=== PATIENT | male | born 1980 | race Caucasian/White ===

== ENCOUNTER 2016-06-18 16:32 | Emergency (ER) | payer BC, OTHER ==
--- NOTE | 2016-06-18 16:46 | ER Document Report ---
ED Medical Screen (RME) - General Stated Complaint: BACK PAIN Time seen by provider: 16:46 Mode of Arrival: Ambulatory Information source: Patient Notes: 36-year-old male presents to ED for low back pain that shoots up to the top of his back. States he was moving heavy equipment around at work 2 weeks ago when the pain started. Denies loss control of bowel or bladder. Denies saddle anesthesia. Is able to walk. States he had Linda Santos 2003 no other back history. I have greeted and performed a rapid initial assessment of this patient. A comprehensive ED assessment and evaluation of the patient, analysis of test results and completion of medical decision making process will be conducted by an additional ED providers. TRAVEL OUTSIDE OF THE [place] IN LAST 30 DAYS: No - Related Data Allergies/Adverse Reactions: No Known Allergies Allergy (Verified 06/18/16 16:46) Past Medical History Neurological Medical History: Reports: Hx Seizures - w/ G.B. - Immunizations Immunizations up to date: Yes Hx Diphtheria, Pertussis, Tetanus Vaccination: Yes Physical Exam - Vital signs Vitals: Temp Pulse Resp BP Pulse Ox 98.2 F 105 H 20 131/87 H 97 06/18/16 16:42 06/18/16 16:42 06/18/16 16:42 06/18/16 16:42 06/18/16 16:42 Course - Vital Signs Vital signs: Temp Pulse Resp BP Pulse Ox 98.2 F 105 H 20 131/87 H 97 06/18/16 16:42 06/18/16 16:42 06/18/16 16:42 06/18/16 16:42 06/18/16 16:42
--- NOTE | 2016-06-18 19:56 | ER Document Report ---
ED General - General Mode of Arrival: Ambulatory Information source: Patient TRAVEL OUTSIDE OF THE [place] IN LAST 30 DAYS: No - HPI Patient complains to provider of: Back Pain Onset: Other - 2.5 weeks ago Associated symptoms: Other - See above - General Chief Complaint: Low Back Pain Stated Complaint: BACK PAIN Notes: 36 year old male presents to the ED complaining of back pain for the past 2.5 weeks after lifting heavy equipment while at work. Patient reports that he went to bend down and felt "something pop." Patient has an appointment with his primary care provider at [facility] 06/24/2016. Patient went to an Urgent Care in [place] while visiting family and was given Ibuprofen for the pain. (MASON STEWART) - Related Data Allergies/Adverse Reactions: No Known Allergies Allergy (Verified 06/18/16 16:46) Past Medical History - General Information source: Patient - Social History Smoking Status: Former Smoker Chew tobacco use (# tins/day): Yes Frequency of alcohol use: 1-2 beers daily Drug Abuse: None Family History: None Patient has suicidal ideation: No Patient has homicidal ideation: No Neurological Medical History: Reports: Hx Seizures - w/ G.B. Renal/ Medical History: Denies: Hx Peritoneal Dialysis Surgical Hx: Negative - Immunizations Immunizations up to date: Yes Hx Diphtheria, Pertussis, Tetanus Vaccination: Yes Review of Systems - Review of Systems Constitutional: No symptoms reported EENT: No symptoms reported Cardiovascular: No symptoms reported Respiratory: No symptoms reported Gastrointestinal: No symptoms reported Genitourinary: No symptoms reported Male Genitourinary: No symptoms reported Musculoskeletal: See HPI, Back pain Skin: No symptoms reported Hematologic/Lymphatic: No symptoms reported Neurological/Psychological: No symptoms reported -: Yes All other systems reviewed and negative Physical Exam - General General appearance: Alert In distress: None - HEENT Head: Normocephalic, Atraumatic Eyes: Normal Extraocular movements intact: Yes Pupils: PERRL - Respiratory Respiratory status: No respiratory distress Breath sounds: Normal - Cardiovascular Rhythm: Regular Heart sounds: Normal auscultation - Abdominal Inspection: Normal Distension: No distension Tenderness: Nontender - Back Back: Tender - Parathoracic and paralumbar tenderness to palpation. No redness or swelling.. No: Normal - Extremities General upper extremity: Normal inspection, Normal ROM General lower extremity: Normal inspection, Normal ROM - Neurological Neuro grossly intact: Yes Cognition: Normal Orientation: AAOx4 [place] Coma Scale Eye Opening: Spontaneous [place] Coma Scale Verbal: Oriented [place] Coma Scale Motor: Obeys Commands [place] Coma Scale Total: 15 Speech: Normal - Psychological Associated symptoms: Normal affect, Normal mood - Skin Skin Temperature: Warm Skin Moisture: Dry Skin Color: Normal Discharge - Discharge Clinical Impression: Back pain Condition: Stable Disposition: HOME, SELF-CARE Instructions: Low Back Pain ([facility]) Additional Instructions: Low Back Pain Three out of every four people will have an episode of disabling back pain during their lifetime. Most commonly the pain is due to straining of the muscles and ligaments in the low back. Usual treatment includes: (1) Rest on a firm surface. Avoid lying on your stomach. (2) Ice pack the painful area. After a few days, gentle heat may be used intermittently to relax the area, or ice packs can be continued. (3) Medication may be needed -- muscle relaxers and antiinflammatory medicines are commonly used. (4) As the back improves, exercises are prescribed to strengthen the back and abdominal muscles. Your doctor will advise you on the proper care for your back at each stage in your recovery. You may be better in a few days -- or healing may take several weeks. If new symptoms of a "herniated disc" (radiation of pain, numbness, or tingling down the back of the leg or weakness in the leg) occur, you should be re-examined. Further testing may be necessary. Follow-up with your primary physician as scheduled next week return for increasing worsening or new symptoms Prescriptions: Methocarbamol [Robaxin 500 mg Tablet] 500 mg PO BID #15 tablet Naproxen [Naprosyn 375 Mg Tablet] 375 mg PO DAILY #12 tablet Scribe Documentation - Scribe Written by Arlene:: Arlene Moreno, 06/18/2016 [id number] acting as scribe for :: Obdulio
[2016-06-18 20:23] VITALS: BP 134/79
== END 2016-06-18 20:19 | disposition home or self-care (01) ==
LOC: ER 16:32
DX: M54.5 Low back pain (principal); X50.0XXA Overexertion from strenuous movement or load, initial encounter; Y99.0 Civilian activity done for income or pay; Z87.891 Personal history of nicotine dependence; Z72.0 Tobacco use
CPT/HCPCS: 72110; 99283

== ENCOUNTER 2018-06-22 05:49 | Day surgery (SDC) | payer BC ==
[2018-06-03 11:54] LABS: HEMATOCRIT 46.3 % (37.9-51.0); HEMOGLOBIN 16.3 g/dL (13.5-17.0); MEAN CORPUSCULAR HEMOGLOBIN 30.9 pg (27.0-33.4); MEAN CORPUSCULAR HGB CONC 35.3 g/dL (32.0-36.0); MEAN CORPUSCULAR VOLUME 88 fl (80-97); PLATELET COUNT 255 10^3/uL (150-450); RED BLOOD COUNT 5.29 10^6/uL (4.35-5.55); RED CELL DISTRIBUTION WIDTH 12.6 % (11.5-14.0); WHITE BLOOD COUNT 5.3 10^3/uL (4.0-10.5)
[2018-06-03 11:59] LABS: INTERNATIONAL RATION (INR) 0.91; PARTIAL THROMBOPLASTIN TIME 29.9 SEC (23.5-35.8); PROTHROMBIN TIME 12.7 SEC (11.4-15.4)
--- NOTE | 2018-06-03 22:04 | EKG REPORT ---
SEVERITY:- NORMAL ECG - SINUS RHYTHM : Confirmed by: Viktor Campos 03-Jun-2018 22:04:03
[~2018-06-22 05:49] MED LIST: CEFAZOLIN 1 GM/D5W RTU 1 GM/50 ML RTUPB IV ONE; CEFAZOLIN 1 GM/D5W RTU 1 GM/50 ML RTUPB IV PRN; CEFAZOLIN 2 GM/D5W RTU 0 GM/0 ML RTUPB IV ONE
[2018-06-22] MEDS ORDERED: POVIDONE-IODINE 5% OPH PREP SOLN 30 ML ONE (06:33)
[2018-06-22] MEDS ORDERED: SODIUM BICARBONATE 4.2% INJ (2.5 MEQ/5 ML) VIAL ONE (06:33)
[2018-06-22] MEDS ORDERED: LIDOCAINE 1%/EPINEPHRINE INJ 20 ML VIAL ONE (06:33)
[2018-06-22] MEDS ORDERED: FENTANYL CITRATE INJ/PF 100 MCG/2 ML AMPUL ONE (06:44)
[2018-06-22] MEDS ORDERED: ONDANSETRON HCL INJ/PF 4 MG/2 ML SDV ONE (06:44)
[2018-06-22] MEDS ORDERED: PROPOFOL INJ 200 MG/20 ML VIAL IV ONE (06:44)
[2018-06-22] MEDS ORDERED: DEXMEDETOMIDINE INJ 80 MCG/20 ML VIAL IV ONE (06:44)
[2018-06-22] MEDS ORDERED: MIDAZOLAM 2 MG/2 ML INJ ONE (06:44)
[2018-06-22] MEDS ORDERED: DIPHENHYDRAMINE HCL 50 MG/ML VIAL IV PRN (08:47)
[2018-06-22] MEDS ORDERED: MEPERIDINE HCL/PF INJ 25 MG/1 ML DISP.SYRIN IV PRN (08:47)
[2018-06-22] MEDS ORDERED: FENTANYL CITRATE INJ/PF 100 MCG/2 ML AMPUL IV PRN ×3 (08:47)
[2018-06-22] MEDS ORDERED: PROMETHAZINE HCL INJ 25 MG/1 ML VIAL IV PRN (08:47)
[2018-06-22] MEDS: FENTANYL CITRATE INJ/PF 100 MCG/2 ML AMPUL ONE ×2 (10:11→10:15)
--- NOTE | 2018-06-22 10:18 | Operative Report ---
Operative Report DATE OF SURGERY: 06/22/18 PREOPERATIVE DIAGNOSIS: Mass of the left forehead suspected aneurysm or pseudoa neurysm. 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 Patient was laid on the table in a supine position. The patient was then prepped with a Betadine scrub and a Betadine solution. The patient was then draped in a sterile and aseptic fashion. A timeout was performed after marking the areas to be resected. The area was anesthetized with 1% lidocaine with epinephrine and bicarb. We then went ahead and incised the outline that was made to facilitate exposure of the proximal and distal ends of the superficial temporal artery. He incision was carried down into the subcutaneous tissue. We then raised flaps both medial and laterally. This facilitated exposure of the whole area. Dissection continued submuscular underneath the frontalis muscle. The mass was located. The mass was then dissected 360 so it could be removed in toto. This appeared that this was a ballooning of the superficial temporal artery, possibly an aneurysm or pseudoaneurysm. Dissection was performed of the feeding vessels into the mass both medial and lateral. We dissected the superficial temporal artery and it appeared at in arch of the artery there was a connection to this bulging mass. We dissected the superficial temporal artery both proximal and distal to the feeding area into the mass. Using 3-0 Vicryl we tied off the feeding vessel. We then went ahead and dissected the lateral side. Again there appeared to be some sort of connection with another branch of the superficial temporal artery. This was then dissected both proximally distally. We then went ahead and tied off the artery both proximal and distally with 3-0 Vicryl. We tied off the connection from the artery to the mass on both sides. Our dissection was down below the muscle. Once we had control from both medial and lateral and superior and inferior we then went ahead and resected the mass. Again it was possibly an aneurysm or a pseudo-. There was no signs of active bleeding after the resection. We then went ahead and double tied each of the arteries that were initially tied off so that we would have good hemostasis and prevent any possible disruption of the closure. We then obtained hemostasis with the bipolar. The wound was irrigated with a Betadine sterile water solution. Again hemostasis was confirmed. The closure was then performed closing the subcutaneous tissue with 5-0 Vicryl. And closed with 4-0 PDS Tincture benzoin and Steri-Strips were applied A light dressing was then applied. Patient was reversed from anesthesia and taken to the [facility] for recovery. This dictation was performed using [employer] naturally speaking. If there are any inconsistencies please contact the surgeon. Subjective: No complaints Objective: Vital signs stable afebrile No bleeding Dressing intact Assessment and plan: Doing well. Elevate the operative site. Resume medications. Take antibiotics for 1 day Follow-up Full instructions were given to the patient and family and they understand Portions of this note may be dictated using [employer] voice recognition software. Occasional variations and spelling and vocabulary could be possible and are unintentional. Additionally, there is a chance that some errors may not be caught or corrected. Please notify the offer of any discrepancies noted or if any statements are unclear.
--- NOTE | 2018-06-22 10:20 | Discharge Summary ---
Discharge Summary (SDC) - Discharge Final Diagnosis: Mass of the left forehead Date of Surgery: 06/22/18 Condition: Good Treatment or Instructions: Leave the top dressing on for 2 days, then removed. Leave the steri-strip tapes on for 5 days, then removal. Then cleaning wound with peroxide and apply Neosporin/bacitracin 3 times per day. Antibiotics for 1 day, then discontinue. Elevate operative area to decrease swelling. Do not strain, or lift heavy objects. Call for excessive bleeding, increased temperature of 101, uncontrolled pain, or excessive nausea or vomiting. You may reach Dr. Hurtado through his office at [phone]. In the event of an emergency after hours, then contact Dr. Hurtado through [facility]. Return to the office for a postop check on . The time will be scheduled by the nursing staff of [facility] prior to discharge. Please give the patient a copy of their labs and EKG so they can bring this to their PMD. Thank you Portions of this note may be dictated using [employer] voice recognition software. Occasional variations and spelling and vocabulary could be possible and are unintentional. Additionally, there is a chance that some errors may not be caught or corrected. Please notify the offer of any discrepancies noted or if any statements are unclear. Referrals: KATHY INIGUEZ MD [Primary Care Provider] - Discharge Diet: As Tolerated Discharge Activity: No Lifting/Push/Pulling Report the Following to Your Physician Immediately: Unusual Bleeding - Keep head elevated. No bending or straining. No heavy activities. No strenuous activities.
[2018-06-22] MEDS ORDERED: OXYCODONE-ACETAMINOPHEN 5-325 MG TABLET ONE (10:43)
[2018-06-22 11:40] VITALS: BP 124/79
== END 2018-06-22 11:35 | disposition home or self-care (01) ==
LOC: OROUT 05:49
PROVIDERS: ATTEND Plastic Surgery
DX: R22.0 Localized swelling, mass and lump, head (principal); I10 Essential (primary) hypertension; G40.909 Epilepsy, unspecified, not intractable, without status epilepticus; D18.09 Hemangioma of other sites; G61.0 Guillain-Barre syndrome; R06.02 Shortness of breath; Z79.899 Other long term (current) drug therapy; Z79.891 Long term (current) use of opiate analgesic
CPT/HCPCS: 93005; 36415; 85027; 85610; 85730; 88305 ×2; 93010; 21013; J2250; J0690; J3010; J3490 ×4; J2405; J2704; 300

== ENCOUNTER 2019-08-26 16:12 | Emergency (ER) | payer OTHER ==
[2019-08-26] MEDS ORDERED: KETOROLAC TROMETHAMINE INJ/PF 30 MG/1 ML SDV IV ONE (16:42)
[2019-08-26] MEDS ORDERED: MORPHINE SULFATE 10 MG/ML INJ IV ONE (16:42)
[2019-08-26] MEDS ORDERED: PREDNISONE 20 MG TABLET PO ONE (16:42)
--- NOTE | 2019-08-26 16:49 | ER Document Report ---
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 He did not fall to the ground. No pain no symptoms to the midline back or to the left lower extremity. No previous history of this in the past. No incontinence, swelling or discoloration of the leg. No fevers or vomiting. ROS: See HPI All other review of systems reviewed and otherwise negative Reviewed vital signs and nursing note as charted by RN. PHYSICAL EXAM: CONSTITUTIONAL: Alert and oriented and responds appropriately to questions. Well-appearing; well-nourished HEAD: Normocephalic; atraumatic NECK: Supple without meningismus; non-tender CARD: Regular rate and rhythm; no murmurs; symmetric distal pulses RESP: Normal chest excursion without splinting or tachypnea; breath sounds clear and equal bilaterally ABD/GI: Normal bowel sounds; non-distended; soft, non-tender to deep palpation of all 4 quadrants of the abdomen BACK: The back appears normal. No midline tenderness, swelling, erythema, or step-offs. Patient has some right-sided paraspinal muscular point tenderness without any swelling or erythema EXT: Normal ROM in all joints; non-tender to palpation; no edema SKIN: No acute lesions noted NEURO: CN 2-12 intact; 5/5 bilateral upper and lower extremity strength with sensation intact to light touch including right foot plantar and flexor extension. Normal 2+ patellar reflexes PSYCH: The patient's mood and manner are appropriate. Grooming and personal hygiene are appropriate. TRAVEL OUTSIDE OF THE [place] 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 Denies: Hx Cerebrovascular Accident Renal/ Medical History: Denies: Hx Peritoneal Dialysis Musculoskeletal Medical History: Denies Hx Arthritis - Immunizations Immunizations up to date: Yes Hx Diphtheria, Pertussis, Tetanus Vaccination: No Physical Exam - Vital signs Vitals: Temp 98.1 F 08/26/19 16:13 Course - Re-evaluation Re-evalutation: 08/26/19 16:49 Given the above history and physical examination, we will obtain IV access and provide IV pain medications including morphine and Toradol. Given the paraspinal location of the patient's pain [place] occurring when the patient stepped off a curb, with no trauma, young age, no history of osteoporosis, no weakness or numbness of the legs, no incontinence, normal reflexes, afebrile, I do believe epidural abscess, discitis, osteomyelitis, or spinal cord compression to be extremely unlikely at this moment. 08/26/19 18:47 No change in exam. Patient's pain however is much improved. We will provide a 4-day course of steroids as well as pain medications and instructions regarding ibuprofen and have the patient follow-up with orthopedics. - Vital Signs Vital signs: Temp Pulse Resp BP Pulse Ox 98.9 F 72 16 135/73 H 96 08/26/19 17:27 08/26/19 17:27 08/26/19 17:27 08/26/19 17:27 08/26/19 17:27 Discharge - Discharge Clinical Impression: Sciatica of right side Condition: Good Disposition: HOME, SELF-CARE Additional Instructions: Come back immediately for any increased pain, change in location or quality of pain, weakness or numbness, or any other acute problems. Please make sure that she follow-up with the primary care physician and possibly the orthopedic as discussed. In addition to the medications we prescribed please take 600 mg of ibuprofen every 6 hours for the next 5 days. Prescriptions: Prednisone [Deltasone 20 mg Tablet] 3 tab PO DAILY 4 Days #12 tablet Oxycodone HCl/Acetaminophen [Percocet 5-325 mg Tablet] 1 tab PO ASDIR PRN #12 tablet PRN Reason: Referrals: KATHY INIGUEZ MD [Primary Care Provider] - Follow up as needed WALTER LOZANO MD [ACTIVE PROVISIONAL STAFF] - Follow up as needed
[2019-08-26 19:26] VITALS: BP 131/68
== END 2019-08-26 19:26 | disposition home or self-care (01) ==
LOC: ER 16:12
DX: M54.31 Sciatica, right side (principal); M54.9 Dorsalgia, unspecified; M54.5 Low back pain; M79.604 Pain in right leg; X58.XXXA Exposure to other specified factors, initial encounter
CPT/HCPCS: 99283; 96374; 96375; J1885; J2270; J7512